=== PATIENT | male | born 1950 | race African-American/Black ===

== ENCOUNTER 2019-02-15 01:10 | Emergency (ER) | payer BC ==
[~2019-02-15] VITALS: Ht 180.3 cm; Wt 127.0 kg
[~2019-02-15 01:10] MED LIST: POLYTRIM OP SOL10 ML LEFT EYE
[2019-02-15 01:20] VITALS: BP 134/85
--- NOTE | 2019-02-15 01:20 | NUR ---
ED Nurse Note: Patient walked into ER from home accompanied by family member d/t left leg pain 10/03. Patient denies fall or trauma. Patient aao x 4 and ambulatory. No acute distress noted upon assessment.
--- NOTE | 2019-02-15 01:25 | NUR ---
ED Nurse Note: ERMD at bedside.
--- NOTE | 2019-02-15 01:29 | Emergency Room Report ---
History of Present Illness General Chief Complaint: Pain Source: Patient Present Illness HPI 69-year-old male with history of high blood pressure and diabetes. He presents with chief complaint of left leg pain. He said he fell asleep on the couch yesterday was watching TV. When he woke up he has numbness to the lateral aspect of his left thigh. Is also painful. Cannot bear weight. He is limping. No trauma. No back pain. No focal deficit. No slurred speech. Denies any other complaint. Pain is 9 out of 10. Better with rest. Allergies: Coded Allergies: No Known Allergies (Unverified , 06/12/15) Patient History Past Medical History: see triage record, old chart reviewed, DM, HTN Past Surgical History: none Pertinent Family History: none Social History: Denies: smoking Immunizations: other Reviewed Nursing Documentation: PMH: Agreed; PSxH: Agreed Nursing Documentation-PMH Past Medical History: No History, Except For Hx Hypertension: Yes Hx Diabetes: Yes Review of Systems Eye: Denies: eye pain, blurred vision ENT: Denies: ear pain, nose congestion, throat swelling Respiratory: Denies: cough, shortness of breath Cardiovascular: Denies: chest pain, palpitations Gastrointestinal: Denies: abdominal pain, diarrhea, nausea, vomiting Musculoskeletal: Reports: muscle pain; Denies: back pain, joint pain Skin: Denies: rash Neurological: Denies: headache, numbness Endocrine: Denies: increased thirst, increased urine Hematologic/Lymphatic: Denies: easy bruising All Other Systems: negative except mentioned in HPI Physical Exam Vital Signs Date Time Temp Pulse Resp B/P (MAP) Pulse Ox O2 Delivery O2 Flow Rate FiO2 02/15/19 01:18 97.9 85 22 131/92 (105) 96 Room Air Vitals normal Sp02 EP Interpretation: reviewed, normal General Appearance: well appearing, no apparent distress, alert, obese Head: normocephalic, atraumatic Eyes: bilateral eye PERRL, bilateral eye EOMI ENT: hearing grossly normal, normal pharynx Neck: full range of motion, supple, no meningismus Respiratory: chest non-tender, lungs clear, normal breath sounds Cardiovascular #1: regular rate, rhythm, no murmur Gastrointestinal: normal bowel sounds, non tender, no mass, no organomegaly, no bruit, non-distended Musculoskeletal: back normal, normal range of motion, tender - Left leg: Tenderness to the lateral aspect of his mid thigh. No anesthesia. Psychiatric: mood/affect normal Medical Decision Making Diagnostic Impression: Primary Impression: Left leg pain ER Course Patient presents with left leg pain. No evidence of DVT or trauma. No evidence of TIA or CVA to indicate the pain. This may be pain from pinched nerve for musculoskeletal pain. Better after medication. Will discharge home. 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 If symptoms continue, you may need an MRI. Return if worse. Jose E Richardson MD Feb 15, 2019 01:29
[2019-02-15] MEDS ORDERED: HYDROmorphone 1mg/ml Carpuject IVP ONE (01:30)
[2019-02-15 01:55] LABS: BASOPHILS % (AUTO) 1.6 % (0.0-2.0); EOSINOPHILS % (AUTO) 2.6 % (0.0-3.0); HEMATOCRIT 38.7 % (42.0-52.0); HEMOGLOBIN 12.8 G/DL (14.2-18.0); LYMPHOCYTES % (AUTO) 32.5 % (20.0-45.0); MEAN CORPUSCULAR VOLUME 85 FL (80-99); NEUTROPHILS % (AUTO) 51.3 % (45.0-75.0); PLATELET COUNT 171 K/UL (150-450); RED BLOOD COUNT 4.55 M/UL (4.70-6.10); RED CELL DISTRIBUTION WIDTH 11.7 % (11.6-14.8); WHITE BLOOD COUNT 3.7 K/UL (4.8-10.8)
--- NOTE | 2019-02-15 02:00 | NUR ---
ED Nurse Note: Patient taken to US in stable condition via wheelchair.
[2019-02-15 02:03] LABS: ANION GAP 4 mmol/L (5-15); BLOOD UREA NITROGEN 15 mg/dL (7-18); CALCIUM 8.9 MG/DL (8.5-10.1); CARBON DIOXIDE 30 MMOL/L (21-32); CHLORIDE 103 MMOL/L (98-107); CREATININE 1.1 MG/DL (0.55-1.30); POTASSIUM 3.7 MMOL/L (3.5-5.1); SODIUM 137 MMOL/L (136-145)
--- NOTE | 2019-02-15 02:37 | NUR ---
ED Nurse Note: Patient taken to x-ray
--- NOTE | 2019-02-15 03:31 | NUR ---
ED Nurse Note: Patient returned from X-ray in stable condition
[2019-02-15] MEDS ORDERED: HYDROcodone/Acetamin 5/325 tab ORAL ONE (04:00)
[2019-02-15] MEDS ORDERED: IBUPROFEN600 MG ORAL (04:29)
[2019-02-15] MEDS ORDERED: HYDROCODON-ACE1 EA15 ORAL (04:29)
[2019-02-15 04:35] VITALS: BP 135/78
--- NOTE | 2019-02-15 04:35 | NUR ---
ER DISCHARGE NOTE: Patient cleared for discharge per ER provider. Patient stable and ambulatory upon discharge. All medical devices, ID band, and IV removed intact with no complications. Patient given DC instructions and prescriptions, verbalized understanding. Work note provided for patient's . Patient provided with crutches and instructions on proper use of crutches, patient verbalized understanding. Patient took all belongings and is stable upon discharge.
--- NOTE | 2019-02-15 11:42 | Diagnostic Imaging Report ---
Indication: Headache Technique: Contiguous 5 mm thick transaxial imaging of the head obtained in a Siemens Sensation [address] scanner. Soft tissue and bone windows generated. Automatic Exposure Control was utilized. Total Dose length Product (DLP): 1363.[address] Dose Index Volume (CTDIvol): 62.7 mGy Comparison: none Findings: The size and configuration of the cortical sulci, basal cisterns, and ventricles are within normal limits for age. There is no mass effect, midline shift, or edema identified. There is no evidence of acute hemorrhage or abnormal intra-axial or extra-axial fluid collections. The bones and soft tissues are unremarkable. Fluid retention cyst demonstrated in the left maxillary sinus. Impression: No mass effect, edema or acute bleed. Left maxillary fluid retention cyst. [facility] has communicated the preliminary results to the Emergency Department. Their findings are largely concordant with this report. The CT scanner at [facility] is accredited by the [employer] and the scans are performed using dose optimization techniques as appropriate to a performed exam including Automatic Exposure control.
--- NOTE | 2019-02-15 11:53 | Diagnostic Imaging Report ---
Indication: Left lower extremity pain and swelling. Technique: Duplex Doppler imaging performed from the left common femoral vein to the popliteal vein. FINDINGS: Normal compressibility demonstrated from the common femoral vein to the popliteal vein. Respiratory phasicity and good augmentation demonstrated on waveform analysis. There is no evidence of thrombosis. IMPRESSION: No evidence of deep venous thrombosis within the left lower extremity.
--- NOTE | 2019-02-15 12:43 | Diagnostic Imaging Report ---
Indication: Left thigh pain Comparison: None Findings: 2 views of the left femur were obtained. No acute fractures, malalignment, erosions or periostitis are identified. Bones are osteopenic. Soft tissues are unremarkable. Degenerative changes of the left knee demonstrated with osteophyte formation and joint space narrowing. Impression: No acute fracture identified
== END 2019-02-15 04:35 | disposition home or self-care (01) ==
LOC: EMR 01:50
DX: M79.605 Pain in left leg (principal); E11.9 Type 2 diabetes mellitus without complications; I10 Essential (primary) hypertension; E66.9 Obesity, unspecified; Z68.39 Body mass index [BMI] 39.0-39.9, adult
CPT/HCPCS: 36415; 70450; 73552; 80048; 85025; 85379; 93971; 96374; 96375; 99284; J1170; J2405